=== PATIENT | female | born 2000 | race Two or more races ===

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

== ENCOUNTER 2020-09-17 23:23 | Emergency (ER) | payer BC, OTHER ==
[~2020-09-17] VITALS: Ht 162.6 cm; Wt 59.1 kg
[~2020-09-17 23:23] MED LIST: AMOX1TAB61 PO
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
[2020-09-17] MEDS ORDERED: AMOXICILLIN/K CLAV 875/125MG TABLET. PO ONE (23:45)
[2020-09-18] MEDS ORDERED: KETOROLAC 15 MG/ML VIAL. IVP ONE
[2020-09-18] MEDS ORDERED: NEOMY/BACITR/POLYMYXIN OINT PACKET. TP ONE (00:11)
[2020-09-18] MEDS ORDERED: AMOX1TAB61 PO (00:11)
[2020-09-18] MEDS ORDERED: HYDR-3164 PO (00:11)
[2020-09-18 00:13] VITALS: BP 131/78
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
[2020-09-18] MEDS ORDERED: HYDROcodone/APAP 5/325MG 1 TAB TABLET PO ONE (00:15)
== END 2020-09-18 00:49 | disposition home or self-care (01) ==
LOC: ER 23:23
DX: S52.502A Unspecified fracture of the lower end of left radius, initial encounter for closed fracture (principal); W54.0XXA Bitten by dog, initial encounter; Y93.89 Activity, other specified; Y92.89 Other specified places as the place of occurrence of the external cause; Y99.8 Other external cause status
CPT/HCPCS: 29125; 73110; 96374; 99283; J1885